=== PATIENT | female | born 2005 | race African-American/Black ===

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

== ENCOUNTER 2025-06-25 15:21 | Emergency (ER) | payer BC, SELFPAY ==
[2025-06-25 15:28] VITALS: BP 112/64; PULSE 89; RESP 16; TEMP 36.7; O2SAT 100
--- NOTE | 2025-06-25 15:34 | ED_ITS ---
HPI - URI/Sore Throat General Chief Complaint: Upper Respiratory Infection Stated Complaint: asthma flair Time Seen by Provider: 06/25/25 15:34 Source: patient, RN notes reviewed and old records reviewed Mode of arrival: ambulatory Limitations: no limitations History of Present Illness HPI Narrative: 20-year-old female presents to the [facility] with intermittent asthma flare for the last month. Reports a history of asthma. States that she has been using an inhaler that her mom gave her. Patient with no symptoms at this time. Requesting a work note for today Related Data Allergies Allergy/AdvReac Type Severity Reaction Status Date / Time Cat Dander Allergy Unknown Uncoded 05/25/17 16:27 Review of Systems Review of Systems: All systems reviewed & are unremarkable except as noted in HPI and below Constitutional: Constitutional: Reports no additional constitutional complaints ENT: Reports system reviewed and no additional complaints, except as documented Cardiovascular: Cardiovascular: Reports no additional cardiovascular complaints, Denies chest pain and Denies dyspnea Respiratory: Respiratory: Reports no additional respiratory complaints, Denies chest congestion, Denies cough and Denies dyspnea Musculoskeletal: Musculoskeletal: Reports no additional musculoskeletal complaints Integumentary/Breasts: Skin/Breast: Reports system reviewed and no additional complaints, except as docu PMFSH Comments At the time of my signature, I reviewed and agree with the nursing past medical, surgical, social, and family history. There is no relevant family history pertinent to the patient complaint. Exam Const: General: cooperative, healthy appearing, comfortable, no acute distress, well developed, alert and well nourished Nutritional Appearance: well nourished Orientation/consciousness: patient oriented x3 Limitations: no limitations HENMT: Head: normal to inspection Ears: hearing grossly normal bilaterally, external ears normal, TM's normal bilaterally, EAC's normal, mastoids normal and no periauricular adenopathy Mouth: Yes Normal oral and palatal mucosa present, Yes lip normal, Yes tongue normal and Yes moist mucous membranes Throat: posterior oropharynx normal, uvula midline and no uvular edema Eyes: General: appearance normal, both eyes and all related structures Alignment and Position: alignment normal Neck: Neck: normal visual inspection, full ROM, no lymphadenopathy and no meningeal signs Chest: Chest palpation & inspection: normal inspection of the chest Resp: Effort & Inspection: normal respiratory effort and able to speak in complete sentences Auscultation: clear to auscultation bilaterally, no crackles, no rales, no rhonchi and no wheezes Cardio: Rate: regular rate Skin: General skin exam: normal color and no rashes or lesions noted Neuro: General: patient oriented x3, gait normal, moves all extremities and no meningeal signs Cognition (Neuro): normal cognition Speech: normal speech Gait exam (Neuro): Normal gait present Extrem: General: normal to inspection, full ROM, capillary refill normal and normal gait Psych: Appearance: grossly normal and well kempt Mental Status: mental status grossly normal Speech and movement: Normal speech and movement present and Clear speech present Affect: normal affect Attitude: cooperative Course Course Level of Care: Express Care Visit Vital Signs Vital signs: Vital Signs Temperature 98.1 F 06/25/25 15:28 Pulse Rate 89 06/25/25 15:28 Respiratory Rate 16 06/25/25 15:28 Blood Pressure 112/64 06/25/25 15:28 Pulse Oximetry 100 06/25/25 15:28 Oxygen Delivery Room Air 06/25/25 15:28 Temperature 98.1 F 06/25/25 15:28 Pulse Rate 89 06/25/25 15:28 Respiratory Rate 16 06/25/25 15:28 Blood Pressure 112/64 06/25/25 15:28 Pulse Oximetry 100 06/25/25 15:28 Oxygen Delivery Room Air 06/25/25 15:28 Reviewed MDM - URI/Sore Throat MDM Narrative Medical decision making narrative: Patient sitting comfortably in exam room. Patient is nontoxic, vitals stable. Patient presents with concerns of intermittent asthma flares. States that she has been using inhaler that her mom gave her. Patient without signs or symptoms currently Patient appropriate for outpatient treatment with close follow-up Discharge instructions reviewed with patient, as well as provided in writing per nursing staff. The instructions also include specific and strict return/GO TO THE ER as well as f/u information. All questions have been answered, and the patient deny any further questions with discharge and discharge plan. Some parts of this dictation were generated by voice recognition software and may contain typographical and/or grammatical inaccuracies. Differential Diagnosis Differential diagnosis: Likely upper respiratory infection, otitis media, sinusitis, viral infection, bronchitis, influenza and pharyngitis Critical Care Time Critical Care Time Critical Care Time: No Discharge Plan Discharge Clinical Impression: History of asthma Patient Disposition: Home Condition: Stable Instructions: Antibiotic Form, Asthma (ED) Additional Instructions: Please follow-up with your primary care provider within the next 2 weeks Patient Language: Lao Prescriptions: New albuterol sulfate [Ventolin HFA] 90 mcg/actuation HFA aerosol inhaler 2 puff inhalation QID PRN (Reason: shortness of breath or wheezing) Qty: 6.7 0RF Follow-up/Referrals: Harms,Medardo Mora M.D. [Primary Care Provider] - 1 Week Clinical Impression: History of asthma Stand Alone Forms: Work/School Release IP Time of Disposition: 15:42
--- OUTSIDE RECORDS SUMMARY | 2025-06-25 16:44 | XMS_ITS | Encounter Summary ---
Author Organization [facility] Address [address] [place] [address] Phone Care Team Providers Care Airborne Weapons Technical Manager Name Role Phone Nick Abdi MD Primary Care Provider Nick Abdi MD Primary Care Provider Samia Salazar MD Primary Care Pr ovider Nick Abdi MD Primary Care Provider Samia Salazar MD Primary Care Pr ovider Nick Abdi MD Primary Care Provider Samia Salazar MD Primary Care Pr ovider Medardo Garcia MD Primary Care Provider + [phone] Encounter Details Date Type Department Care Team (Late st Contact Info) Description 12/28/2016 Orders Only [facility] ProviderHaily MD [address] [place] [id number] Social History Tobacco Use Types Packs/Day Years Used Date Smoking Tobacco: Never Assessed Comments Unknown Sex and Gender Information Value Date Recorded Sex Assigned at Not on file Legal Sex Female 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 us Historical Provider Final Res ult documented in this encounter Visit Diagnoses Not on filedocumented in this encounter Additional Health Concerns Infection Onset Date Last Indicated Resolved Time MRSA Comment:Backloaded August 03, 2011 05/20/2011 05/20/201105/15 5:00 AM CDT documented as of this encounter Care Teams Airborne Weapons Technical Manager Relationship Specialty Start Date End Date Nick Abdi MD [address] [place] [address] PCP - General 03/12/15 04/18/17 Nick Abdi MD [address] [place] [address] PCP - General 04/19/17 04/19/17 Samia Salazar MD [address] [place] [address] [address] [place] [address] PCP - General 04/20/17 04/25/17 Nick Abdi MD [address] [place] [address] PCP - General 04/26/17 04/26/17 Samia Salazar MD [address] [place] [address] [place] [address] PCP - General 04/27/17 05/04/17 Nick Abdi MD [address] [place] [address] [place] [address] PCP - General 05/05/17 05/08/17 Samia Salazar MD [address] [place] [address] [facility] [address] [facility] [place] [address] PCP - General 05/09/17 10/29/23 Medardo Garcia MD [address] [place] [address] PCP - General Family Medicine 10/30/23 documented as of this encounter
--- OUTSIDE RECORDS SUMMARY | 2025-06-25 16:44 | XMS_ITS | Encounter Summary ---
Author Organization [facility] Address [address] [place] [address] Phone Care Team Providers Care Toll Bridge Attendant Name Role Phone Nick Abdi MD Primary Care Provider Nick Abdi MD Primary Care Provider Samia Salazar MD Primary Care Pr ovider Nick Abdi MD Primary Care Provider Samia Salazar MD Primary Care Pr ovider Nick Abdi MD Primary Care Provider Samia Salazar MD Primary Care Pr ovider Medardo Garcia MD Primary Care Provider [phone] Encounter Details Date Type Department Care Team (Late st Contact Info) Description 11/10/2016 Orders Only [facility] ProviderHaily MD [address] [place] [id number] Social History Tobacco Use Types Packs/Day Years Used Date Smoking Tobacco: Never Assessed Comments Unknown Sex and Gender Information Value Date Recorded Sex Assigned at Not on file Legal Sex Female 7:16 AM WEB PRESSMAN Gender Identity Not on file Sexual Orientation Not on file documented as of this encounter Plan of Treatment Not on file documented as of this encounter Procedures Procedure Name Priority Date/Time Associated Diagnosis Comments PULMONARY - RESULT SCAN 11/10/2016 4:32 PM WEB PRESSMAN documented in this encounter Results * PULMONARY - RESULT SCAN (11/10/2016 4:32 PM WEB PRESSMAN) Anatomical Region Laterality Modality Other Narrative 11/10/2016 4:32 PM WEB PRESSMAN Ordered by an unspecified provider. us Historical Provider Final Res ult documented in this encounter Visit Diagnoses Not on filedocumented in this encounter Additional Health Concerns Infection Onset Date Last Indicated Resolved Time MRSA Comment:Backloaded August 03, 2011 05/20/2011 05/20/201105/15 5:00 AM CDT documented as of this encounter Care Teams Toll Bridge Attendant Relationship Specialty Start Date End Date Nick Abdi MD [address] [place] [address] PCP - General 03/12/15 04/18/17 Nick Abdi MD [address] [place] [address] PCP - General 04/19/17 04/19/17 Samia Salazar MD [address] [place] [address] [address] [place] [address] PCP - General 04/20/17 04/25/17 Nick Abdi MD [address] [place] [address] PCP - General 04/26/17 04/26/17 Samia Salazar MD [address] [place] [address] [place] [address] PCP - General 04/27/17 05/04/17 Nick Abdi MD [address] [facility] [place] [address] PCP - General 05/05/17 05/08/17 Samia Salazar MD [address] [facility] [address] [place] [address] PCP - General 05/09/17 10/29/23 Medardo Garcia MD [address] [place] [address] PCP - General Family Medicine 10/30/23 documented as of this encounter
--- OUTSIDE RECORDS SUMMARY | 2025-06-25 16:44 | XMS_ITS | Clinical Summary ---
Author Organization [facility] Address [address] [place] [address] Care Team Providers Care Senior Oracle Pl Sql Developer Name Role Phone Medardo Garcia MD Primary Care Provider [phone] Allergies Active Allergy Reactions Criticality Noted Date Comments Fish Containing Products Anaphylaxis High 07/06/2018 Peanut Butter Flavor Chest tightness Medium 07/06/2018 Medications albuterol HFA (Ventolin HFA) 90 mcg/actuation inhalerIndicati ons:Acute Asthma Attack Inhale 2 puffs every 4 (four) hours as needed for wheezing or shortness of breath (cough) 1 each 03/02/20 25 Active ipratropium-alb uteroL (DUO-NEB) 0.5-2.5 mg/3 mL nebulizer solutionIndicat ions:Moderate persistent asthma without complication Take 3 mL by nebulization 4 (four) times a day as needed for wheezing or shortness of breath 90 mL 11 03/18/20 25 Active fluticasone propion-salmete roL (ADVAIR DISKUS) 250-50 mcg/dose diskus inhalerIndicati ons:Maintenance Therapy for Asthma Inhale 1 puff 2 (two) times a day Rinse mouth with water after use. Do not swallow. 3 each 4 03/18/20 25 Active hydrOXYzine (ATARAX) 25 mg tablet TAKE 1 TABLET(25 MG) BY MOUTH EVERY 6 HOURS FOR UP TO 20 DOSES NEEDED FOR ANXIETY 20 tablet 04/20/20 25 Active FLUoxetine 10 mg tablet/capsule TAKE 1 CAPSULE(10 MG) BY MOUTH DAILY 30 capsule 90 05/28/20 25 Active FLUoxetine (PROzac) 10 mg tablet/capsule Take 1 tablet/capsule (10 mg total) by mouth daily 30 tablet/caps ule 1 03/02/20 25 2024 Discontinued Hospital, Clinic, or Other Facility Administered Medication Ordered Dose Route Frequency Start Date End Date Status albuterol 2.5 mg /3 mL (0.083 %) nebulizer solution 2.5 mgIndications:Mild intermittent asthma with exacerbation 2.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 Will continue on Prozac and Hydroxyzine. Will continue to monitor. Referral placed to Psychiatry. Will also reach out to Varsha to work with patient as well. Will continue to monitor. Orders: Ambulatory referral to Psychiatry; Future Allergic rhinitis due to animals 11/10/2016 Tree nut allergy 11/10/2016 Allergic rhinitis due to pollen 11/10/2016 Allergy to shellfish 11/10/2016 Allergy to peanuts 11/10/2016 Moderate persistent asthma without complication 10/18/2016 Overview (09/23/2020): Last Assessment & Plan: She has marked increase in Fraction of exhaled Nitric Oxide - marker of eosinophilic airway inflammation and her pulmonary function tests show obstruction. I would like to get her back in control with increased inhaled corticosteroids dose and change to combination therapy. Will wean this dose in the future. Reviewed and dispensed aerochamber. Assessment & Plan (03/18/2025 1:04 PM CDT): Not well controlled. Will start on Advair and refill nebulizer solution. Will continue to monitor. Orders: ipratropium-albuteroL (DUO-NEB) 0.5-2.5 mg/3 mL nebulizer solution; Take 3 mL by nebulization 4 (four) times a day as needed for wheezing or shortness of breath fluticasone propion-salmeteroL (ADVAIR DISKUS) 250-50 mcg/dose diskus inhaler; Inhale 1 puff 2 (two) times a day Rinse mouth with water after use. Do not swallow. Anxiety disorder Assessment & Plan (03/18/2025 1:04 PM CDT): See MDD above Orders: Ambulatory referral to Psychiatry; Future Suicidal ideation Resolved Problems Problem Noted Date Diagnosed Date Resolved Date Nondisplaced fracture of mid dle phalanx of right middle finger, initial encounter for closed fracture 06/17/2019 09/23/2020 Knee pain 03/15/2015 09/23/2020 Overview (01/25/2017): Knee pain Cough 09/23/2020 Asthma 09/23/2020 Immunizations Immunization Administration Dates Next Due DTaP 09/17/2006, 5,2005,06/02 DTaP / IPV 06/15/2009 HPV9 01/08/2019,07/10/2018 Hep A, Ped Unspecified 09/17/2006 Hep A, Pediatric 08/19/2007 Hep B, Adolescent or Pediatric 5,2005,2005,03/25 HiB 09/17/2006, 5,2005,06/02 Influenza, Quadrivalent, Spl it, Preservative Free, Intramuscular 07/20/2020,11/18/2019,07/10/2018,10/12,07/04/2016 Influenza, Split 2005,2005 Influenza, Trivalent, IM (MDV) 07/21/2008 Influenza, Trivalent, Preser vative Free, Intramuscular 08/05/2009,09/08/2008 Influenza, Unspecified 03/18/2025(Deferr ed: Patient Refused),06/15/2024(Deferred: Patient Refused),10/30/2023(Deferred: Patient Refused),10/15/2022(Deferred: Patient Refused),06/17/2020 Influenza, Whole 08/19/2007 MMR 06/15/2009,04/23/2006 Meningococcal B, OMV (Bexsero) 06/28/2022,2021 Meningococcal Conjugate (Menveo) 04/05/2016 Meningococcal MCV4P (Menactra) 01/04/2022 Pneumococcal Conjugate 7-Valent 09/17/20 06,2005,2005,06/02 Polio, Unspecified 2005,2005, 005 Tdap 04/05/2016 Varicella 06/15/2009,04/23/2006 Surgical History Surgery Date Site/Laterality Comments TYMPANOSTOMY TUBE PLACEMENT FINGER SURGERY Medical History Medical History Date Comments Hx Other Medical Ear tubes in th e past.; Comments: ASIA 03/15/2015 - Asthma Allergic rhinitis Food allergy Family History Medical History Relation Name Comments Asthma Maternal Grandfather Asthma Maternal Grandmother Allergic rhinitis Mother Eczema Mother Asthma Paternal Grandfather Asthma Paternal Grandmother Allergic rhinitis Sister Eczema Sister Relation Name Status Comments Maternal Grandfather Maternal Grandmother Mother Paternal Grandfather Paternal Grandmother Sister Social History Tobacco Use Types Packs/Day Years Used Date Smoking Tobacco: Never Smokeless Tobacco: Never Tobacco Cessation:Counseling Given: No AUDIT-C Answer Date Recorded Q1: How often do you have a drink containing alcohol? Never 01/01/2025 Q2: How many drinks containi ng alcohol do you have on a typical day when you are drinking? Patient does not drink Q3: How often do you have si x or more drinks on one occasion? Never 01/01/2025 PHQ-2 Answer Date Recorded PHQ-2 Total Score (If total score is 3 or more points, staff should administer the PHQ-9) 2 03/18/2025 Personal Safety Answer Date Recorded Have you ever been in or are you currently in a harmful physical or emotional relationship or is someone making you feel afraid or unsafe? 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 Did not require oxygen or ventilatory support after . Obstetrics History Last Filed Vital Signs Vital Sign Reading Time Taken Comments Blood Pressure 100/64 03/18/2025 12:42 PM CDT Pulse 95 03/18/2025 12:42 PM CDT Temperature 36.6 C (97.8 F) 01/01/2025 7:00 PM CDT Respiratory Rate 18 03/18/2025 12:42 PM CDT Oxygen Saturation 97% 03/18/2025 12:42 PM CDT Inhaled Oxygen Concentration - - Weight 54.5 kg (120 lb 3.2 oz) 03/18/2025 12:42 PM CDT Height 165.1 cm (5' 5) 03/18/2025 12:42 PM CDT Body Mass Index 20 03/18/2025 12:42 PM CDT Plan of Treatment Health Maintenance Due Date Last Done Comments Hepatitis C Screening 2005 Pneumococcal vaccine <65 (1 of 1 - PPSV23, PCV20, or PCV21) 2011 09/17/2006, 2005, 2005, Additional history exists Covid-19 Vaccine (3 - 2024-2 6 season) 2025 12/17/2021, 11/26/2021 Influenza Vaccine (#1) 2025 , 06/17/2020, 11/18/2019, Additional history exists Depression Screening 03/18/2026 03/18/2025, 10/30/2023, 10/30/2023 Regular Well Visit/Exam 18-64 03/18/2026 03/18/2025 DTaP/Tdap/Td Vaccine (7 - Td or Tdap) 04/05/2026 04/05/2016, 06/15/2009, 09/17/2006, Additional history exists Hepatitis B Screening Completed 2005 , 2005, 2005, Additional history exists Varicella Vaccines Completed 06/15/2009, 04/23/2006 HPV Vaccines Completed 01/08/2019, 07/10/2018 Meningococcal Vaccine Completed 01/04/2022, 016 Meningococcal B Vaccine Completed 06/28/2022, 01/04 Insurance [facility] CHOICE PLUS [facility] CHOICE PLUS [employer] OPEN ACCESS [facility] [facility] Advance Directives For more information, please contact: [phone] * Full Code (Latest Code Status on File) Date Activated Date Inactivated Comments 01/01/2023 11:57 PM 01/05/2023 6:54 PM Care Teams Senior Oracle Pl Sql Developer Relationship Specialty Start Date End Date Medardo [place] [address] PCP - General Family Medicine 10/30/23
== END 2025-06-25 15:50 | disposition home or self-care (01) ==
PROVIDERS: Emergency Provider Nurse Practitioner; PCP Family Medicine
DX: J45.909 Unspecified asthma, uncomplicated (principal)
CPT/HCPCS: 99203; G0463